=== PATIENT | male | born 1960 | race Caucasian/White ===

== ENCOUNTER 2020-09-06 10:18 | Outpatient (REF) | payer OTHER, SELFPAY ==
--- NOTE | 2020-09-06 | CT_ITS ---
EXAMINATION: CT HEAD WITHOUT CONTRAST CLINICAL INFORMATION: Anxiety. COMPARISON: None TECHNIQUE: Contiguous axial imaging was performed from the skull base to vertex without intravenous administration of contrast. This CT examination was performed using dose optimization techniques as appropriate, variously including the following: *Automated exposure control *Adjustment of mA and/or kV according to patient size (this includes techniques or standardized protocols for targeted exams where dose is matched to indication/reason for exam; i.e. extremities or head) *Use of iterative reconstruction technique DLP: 831 mGy-cm FINDINGS: There is no evidence of acute intracranial hemorrhage or territorial infarction. No abnormal mass effect or midline shift is seen. Maharaj to white matter differentiation is well preserved. No extra-axial fluid collections are identified. The ventricles are normal in size. There is no abnormal attenuation within the brain parenchyma. The osseous structures and soft tissues are normal. The mastoid air cells are well aerated. There is mucosal opacification of the frontal sinuses and moderate ethmoid sinus disease bilaterally. There are aerosolized secretions and dependent fluid levels in the right greater than left sphenoid sinuses. Milder patchy mucosal thickening partially visualized in the maxillary antra. IMPRESSION: No acute intracranial pathology. Normal CT scan of the head. Extensive paranasal sinus disease with fluid levels in the sphenoid sinuses and complete mucosal opacification of the frontal sinuses. Significant ethmoid sinus mucosal thickening.
== END 2020-09-06 10:19 | disposition home or self-care (01) ==
LOC: HO.CT 10:18
PROVIDERS: Visit Provider Internal Medicine Geriatric Medicine
DX: R41.3 Other amnesia (principal); F41.1 Generalized anxiety disorder
CPT/HCPCS: 70450

== ENCOUNTER → 2021-03-01 08:34 | Outpatient (BNVA) | payer OTHER, SELFPAY | PROVIDERS: PCP Internal Medicine Geriatric Medicine; Visit Provider Urology ==

== ENCOUNTER 2021-03-15 11:34 | Outpatient (REF) | payer OTHER, SELFPAY ==
[2021-03-15 11:36] VITALS: BMI 30.4
[2021-03-15 11:37] VITALS: BP 147/69; PULSE 97; RESP 16; TEMP 36.8; O2SAT 97
[2021-03-15 12:16] VITALS: BP 111/73; PULSE 95; RESP 16; O2SAT 96
--- NOTE | 2021-03-15 12:16 | W.PM.OPN ---
Operative Note Operative Note Date of Service: 03/15/21 Narrative: Preoperative diagnosis: Elevated PSA Postoperative diagnosis: Elevated PSA Procedure: 1. transrectal ultrasound measurement of prostate 2. transrectal ultrasound-guided pudendal nerve block 3. transrectal ultrasound-guided prostate biopsy 12 core Surgeon: Dr. Wero Morris Anesthetic: Local Indications for procedure: Elevated PSA Procedure: After informed consent was verified, the patient was brought into the procedure area and lay left-hand side down on the table. Patient identity confirmed. Perioperative antibiotics confirmed. Gel was placed per rectum Ultrasound probe was placed per rectum The prostate was measured in 3 dimensions Total volume equals 45 gm There were no cystic structures and no calcifications noted and the prostate was homogeneous in nature A ultrasound-guided pudendal nerve block was performed using 10 cc of 1% lidocaine. 8 cc was placed at the base and 2 cc of the apex. A 12 core biopsy was performed with 6 cores each side. Two cores were taken at the apex, mid and base. Cores were spaced between lateral and medial. He tolerated the procedure well. Was able to ambulate to bathroom after 5 minutes. Printed instructions regarding antibiotic use and common side effects such as low-grade temperature and bleeding were given.
--- NOTE | 2021-03-15 12:17 | MHC.SHP ---
Pre-Procedural Eval Section A The patient is an INPATIENT: No Changes since office visit: No Cold of Flu in the past 2 weeks, No New Medical Problems, No Changes in Medication and No Patient answered all questions The History & Physical has been completed within 30 days and I have reviewed it.: Yes Section B Chief Complaint: ELEVATED PSA, PROSTATE BX IN MINOR Allergies: Allergies Allergy/AdvReac Type Severity Reaction Status Date / Time No Known Allergies Allergy Verified 03/01/21 08:42 Plan Diagnosis/Plan: Unchanged (Prostate Biopsy PSA 5.3) I have reviewed the history and physical and performed a pertinent physical examination on my patient. No changes have occurred unless specified.
== END 2021-03-15 11:35 | disposition home or self-care (01) ==
LOC: HO.MS 11:34
PROVIDERS: PCP Internal Medicine Geriatric Medicine; Visit Provider Urology
PROC: (CPT 55700; principal; 2021-03-15 12:00)
DX: R97.20 Elevated prostate specific antigen [PSA] (principal); Z87.442 Personal history of urinary calculi; Z79.899 Other long term (current) drug therapy
CPT/HCPCS: 55700; 76942; 88305; 88344

== ENCOUNTER → 2021-03-27 09:35 | Outpatient (BNVA) | payer OTHER, SELFPAY | PROVIDERS: PCP Internal Medicine Geriatric Medicine; Visit Provider Urology ==

== ENCOUNTER 2021-08-08 08:19 | Outpatient (REF) | payer OTHER, SELFPAY ==
--- NOTE | ~2021-08-08 | US_ITS ---
EXAMINATION: US RETROPERITONEAL LIMITED (RENAL ONLY) CLINICAL INFORMATION: Calculus of kidney. COMPARISON: Renal ultrasound 08/13/2019 and 02/16/2019. KUB 07/21/2019. CT abdomen and pelvis 05/23/2017. TECHNIQUE: Real-time imaging of the kidneys. FINDINGS: RIGHT KIDNEY: 11.8 x 5.1 x 5.5 cm (SAG x AP x TRV). The kidney is normal in size, contour, and echogenicity. Renal cortical thickness is normal. No hydronephrosis. Midpole 0.6 cm renal stone, unchanged. Midpole simple cyst measuring 1.2 cm, unchanged. LEFT KIDNEY: 11.3 x 5.3 x 5.9 cm (SAG x AP x TRV). The kidney is normal in size, contour, and echogenicity. Renal cortical thickness is normal. No renal calculi or hydronephrosis. Midpole simple cyst measuring 2.2 cm, unchanged. US/US renal BI IMPRESSION: Stable nonobstructing right renal stone. No new renal stone. No hydronephrosis. Simple bilateral renal cysts are unchanged. Cysts are not clinically significant and no dedicated follow-up imaging is recommended.
[2021-08-08 10:01] LABS: PSA,Total (Free>4and<10) 3.03 ng/mL (0.00-4.00)
== END 2021-08-08 08:20 | disposition home or self-care (01) ==
LOC: HO.US 08:19
PROVIDERS: PCP Internal Medicine Geriatric Medicine; Visit Provider Urology
DX: Z12.5 Encounter for screening for malignant neoplasm of prostate (principal); N20.0 Calculus of kidney; N40.1 Benign prostatic hyperplasia with lower urinary tract symptoms; N13.8 Other obstructive and reflux uropathy
CPT/HCPCS: 36415; 76775; 84153

== ENCOUNTER → 2021-10-23 09:35 | Outpatient (BNVA) | payer OTHER, SELFPAY | PROVIDERS: PCP Internal Medicine Geriatric Medicine; Visit Provider Urology ==

== ENCOUNTER 2022-01-17 11:18 | Outpatient (REF) | payer OTHER, SELFPAY ==
--- NOTE | ~2022-01-17 | XR_ITS ---
EXAMINATION: XR CHEST CLINICAL INFORMATION: Shortness of breath. History of Covid 19 infection. COMPARISON: None TECHNIQUE: 2 views of the chest were obtained. FINDINGS: PA and lateral views of the chest are obtained. The lungs are slightly hypoinflated on the lateral view in which there appears to be mild crowding of bronchovascular structures in the retrocardiac area. The lungs are adequately expanded on the frontal view. The lungs are grossly clear. No interstitial disease, consolidation or pleural effusion. Cardiomediastinal silhouette has normal size and contour. The visualized bones are intact. Cholecystectomy clips are present in the right upper quadrant. XR/XR chest 2V IMPRESSION: No evidence of pneumonia. No acute cardiopulmonary findings.
== END 2022-01-17 11:19 | disposition home or self-care (01) ==
LOC: HO.XRAY 11:18
PROVIDERS: PCP Internal Medicine Geriatric Medicine; Visit Provider Internal Medicine Geriatric Medicine
DX: R06.00 Dyspnea, unspecified (principal); Z86.16 Personal history of COVID-19
CPT/HCPCS: 71046

== ENCOUNTER 2022-02-12 09:43 | Outpatient (REF) | payer OTHER, SELFPAY ==
[2022-02-12 11:49] LABS: Prostate Specific Antigen 0.96 ng/mL (<0.05-4.0)
== END 2022-02-12 09:44 | disposition home or self-care (01) ==
LOC: HO.LAB 09:43
PROVIDERS: PCP Internal Medicine Geriatric Medicine; Visit Provider Urology
DX: C61 Malignant neoplasm of prostate (principal)
CPT/HCPCS: 36415; 84153

== ENCOUNTER → 2022-02-21 12:47 | Outpatient (BNVA) | payer OTHER, SELFPAY | PROVIDERS: PCP Internal Medicine Geriatric Medicine; Visit Provider Urology | DX: C61 Malignant neoplasm of prostate (principal); N40.1 Benign prostatic hyperplasia with lower urinary tract symptoms; R33.8 Other retention of urine; N13.8 Other obstructive and reflux uropathy ==

== ENCOUNTER 2022-05-16 08:50 | Outpatient (REF) | payer OTHER, SELFPAY ==
[2022-05-16 10:50] LABS: Prostate Specific Antigen 1.15 ng/mL (<0.05-4.0)
== END 2022-05-16 08:51 | disposition home or self-care (01) ==
LOC: HO.LAB 08:50
PROVIDERS: PCP Internal Medicine Geriatric Medicine; Visit Provider Urology
DX: C61 Malignant neoplasm of prostate (principal); Z12.5 Encounter for screening for malignant neoplasm of prostate
CPT/HCPCS: 36415; 84153

== ENCOUNTER 2022-10-21 08:12 | Outpatient (REF) | payer OTHER, SELFPAY ==
[2022-10-21 09:47] LABS: Blood Urea Nitrogen 11 mg/dL (9-16); Estimated Glomerular Filt Rate > 60; Prostate Specific Antigen 1.49 ng/mL (<0.05-4.0)
== END 2022-10-21 08:13 | disposition home or self-care (01) ==
LOC: HO.LAB 08:12
PROVIDERS: PCP Internal Medicine Geriatric Medicine; Visit Provider Urology
DX: Z12.5 Encounter for screening for malignant neoplasm of prostate (principal); C61 Malignant neoplasm of prostate; R39.15 Urgency of urination
CPT/HCPCS: 36415; 82565; 84153; 84520

== ENCOUNTER 2022-12-24 11:22 | Outpatient (REF) | payer OTHER, SELFPAY ==
--- NOTE | ~2022-12-24 | US_ITS ---
EXAMINATION: US RETROPERITONEAL LIMITED (RENAL ONLY) CLINICAL INFORMATION: Calculus of kidney. COMPARISON: Ultrasound retroperitoneal limited (renal only) 08/08/2021 and 08/13/2019. X-ray abdomen KUB 07/21/2019. CT abdomen and pelvis without and with contrast 12/23/2016. TECHNIQUE: Real-time imaging of the kidneys. FINDINGS: RIGHT KIDNEY: 11.9 x 5.1 x 5.5 cm (SAG x AP x TRV). The kidney is normal in size, contour, and echogenicity. Renal cortical thickness is normal. No renal calculi or hydronephrosis. There is a 1.4 cm benign-appearing cyst present which may contain a single septation, unchanged when compared to 2020. LEFT KIDNEY: 11.6 x 5.3 x 5.1 cm (SAG x AP x TRV). The kidney is normal in size, contour, and echogenicity. Renal cortical thickness is normal. No renal calculi or hydronephrosis. There is a 2.7 cm benign Bosniak class I renal cyst present. US/US renal BI IMPRESSION: Bilateral benign-appearing renal cysts which need no additional imaging or follow up. No nephrolithiasis detected. A worrisome finding is not present.
== END 2022-12-24 11:23 | disposition home or self-care (01) ==
LOC: HO.HMGCX 11:22
PROVIDERS: PCP Internal Medicine Geriatric Medicine; Visit Provider Urology
DX: N20.0 Calculus of kidney (principal)
CPT/HCPCS: 76775

== ENCOUNTER 2023-02-17 08:12 | Outpatient (REF) | payer OTHER, SELFPAY | END 2023-02-17 08:13 | disposition home or self-care (01) | LOC: HO.LAB 08:12 | PROVIDERS: PCP Internal Medicine Geriatric Medicine; Visit Provider Urology | DX: Z12.5 Encounter for screening for malignant neoplasm of prostate (principal); C61 Malignant neoplasm of prostate | CPT/HCPCS: 36415; 84153 ==

== ENCOUNTER → 2023-02-26 13:23 | Outpatient (BNVA) | payer OTHER, SELFPAY | PROVIDERS: PCP Internal Medicine Geriatric Medicine; Visit Provider Urology | DX: Z13.89 Encounter for screening for other disorder (principal) ==

== ENCOUNTER 2023-05-13 08:21 | Outpatient (REF) | payer OTHER, SELFPAY ==
[2023-05-13 09:47] LABS: Prostate Specific Antigen 1.63 ng/mL (<0.05-4.0)
== END 2023-05-13 08:22 | disposition home or self-care (01) ==
LOC: HO.LAB 08:21
PROVIDERS: Visit Provider Urology
DX: Z12.5 Encounter for screening for malignant neoplasm of prostate (principal); C61 Malignant neoplasm of prostate
CPT/HCPCS: 36415; 84153

== ENCOUNTER → 2023-07-03 11:26 | Outpatient (BNVA) | payer OTHER, SELFPAY | PROVIDERS: PCP Internal Medicine Geriatric Medicine; Visit Provider Urology ==

== ENCOUNTER 2023-07-14 14:20 | Outpatient (REF) | payer OTHER, SELFPAY ==
--- NOTE | ~2023-07-14 | XR_ITS ---
EXAMINATION: XR CHEST CLINICAL INFORMATION: Reason for Exam TIGHTNESS COMPARISON: Chest radiograph 01/17/2022 TECHNIQUE: 2 views of the chest FINDINGS: Lines and tubes: None. Clear lungs. No pleural effusion. No pneumothorax. Normal cardiomediastinal silhouette. XR/XR chest 2V IMPRESSION: * Clear lungs.
== END 2023-07-14 14:21 | disposition home or self-care (01) ==
LOC: HO.HHCX 14:20
PROVIDERS: Visit Provider Registered Nurse
DX: J45.41 Moderate persistent asthma with (acute) exacerbation (principal)
CPT/HCPCS: 71046